=== PATIENT | male | born 1990 | race Caucasian/White ===

== ENCOUNTER 2017-06-15 15:15 | Emergency (ER) | payer OTHER ==
[~2017-06-15] VITALS: Ht 193 cm; Wt 84.0 kg
[~2017-06-15 15:15] MED LIST: Z.0.NO CURRENT MEDS
[2017-06-15 15:16] VITALS: BP 145/62; PULSE 72; RESP 14; TEMP 97.8; O2SAT 98
[2017-06-15] MEDS ORDERED: MELO15TA20 PO (16:07)
[2017-06-15] MEDS ORDERED: TRAZ50TA12 PO (16:07)
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
[2017-06-15 16:44] LABS: BILIRUBIN, URINE NEG (NEG); BLOOD, URINE NEG (NEG); GLUCOSE,URINE NEG (NEG); KETONE, URINE NEG (NEG); MUCUS URINE FEW /lpf (OCC); NITRITE,URINE NEG (NEG); URINE COLOR YELLOW (YELLW/STRAW); URINE LEUKOCYTE ESTERASE SMALL (NEG)
--- NOTE | 2017-06-15 18:10 | RADRPT ---
EXAM DATE/TIME: 06/15/2017 17:39 [facility] COMPARISON: No previous studies available for comparison. INDICATIONS : Testicular pain. MEDICAL HISTORY : Testicular pain. SURGICAL HISTORY : Umbilical hernia repair. ENCOUNTER: Initial ACUITY: 1 week PAIN SCORE: 3/10 LOCATION: Bilateral scrotum. MEASUREMENTS: RIGHT TESTICLE: 5.1 x 4.1 x 2.7cm LEFT TESTICLE: 4.3 x 3.0 x 2.3cm FINDINGS: RIGHT TESTICLE: Homogeneous echotexture without intra or extratesticular mass. Blood flow is symmetric and within no rmal limits. Small right hydrocele is noted. No varicocele. There is a small right epididymal cyst me asuring 7 mm. LEFT TESTICLE: Homogeneous echotexture without intra or extratesticular mass. Blood flow is symmetric and within no rmal limits. No hydrocele or varicocele. Epididymis is within normal limits. SCROTUM: Within normal limits. CONCLUSION: 1. No intratesticular mass, acute epididymo-orchitis or testicular torsion. 2. Small right hydrocele. 3. Small right epididymal cyst measuring 7 mm. Bowen Champion MD on June 15, 2017 at 18:06 Board Certified Radiologist. This report was verified electronically.
[2017-06-15] MEDS ORDERED: LIDOCAINE HCL 1% 50 ML VIAL XX ONE (18:15)
[2017-06-15] MEDS ORDERED: AZITHROMYCIN PWD FOR SUSP 1 GM PACKET PO ONE (18:15)
[2017-06-15] MEDS ORDERED: cefTRIAXone 250 MG VIAL IM ONE (18:15)
[2017-06-15] MEDS ORDERED: CIPR-9 PO (18:18)
[2017-06-15] MEDS ORDERED: LIDOCAINE HCL 1% PF 10 ML VIAL OTHER ONE (18:30)
[2017-06-15] MEDS ORDERED: AZITHROMYCIN 250 MG TAB PO ONE (18:30)
[2017-06-15] MEDS ORDERED: LIDOCAINE HCL 1% PF 5 ML AMPULE OTHER ONE (18:45)
== END 2017-06-15 19:26 | disposition home or self-care (01) ==
LOC: NEPK 15:15
DX: N39.0 Urinary tract infection, site not specified (principal); B96.89 Other specified bacterial agents as the cause of diseases classified elsewhere; N50.811 Right testicular pain
CPT/HCPCS: 76870; 81001; 87086; 87491; 87591; 93975; 96372; 99284; J0696